=== PATIENT | female | born 1990 ===

== ENCOUNTER 2017-02-23 15:35 | Emergency (ER) | payer MEDICAID ==
[2017-02-23 16:21] VITALS: BP 126/78; PULSE 115; RESP 20; TEMP 98.8; O2SAT 99
== END 2017-02-23 16:45 | disposition home or self-care (01) | DRG 605 ==
LOC: ED 15:35
DX: S60.012A Contusion of left thumb without damage to nail, initial encounter (principal); W22.8XXA Striking against or struck by other objects, initial encounter
CPT/HCPCS: 73140; 99282